=== PATIENT | male | born 1965 | race American Indian/Alaskan Native ===

== ENCOUNTER 2021-03-01 12:17 | Emergency (ER) | payer BC ==
[2021-03-01 12:59] VITALS: BP 193/67
--- NOTE | 2021-03-01 14:56 | Emergency Department Report ---
ED Extremity Problem HPI - General Chief complaint: Extremity Problem,Nontraumatic Stated complaint: SWELLING TO RT LEG Time Seen by Provider: 03/01/21 14:08 Source: patient Mode of arrival: Ambulatory Limitations: No Limitations - History of Present Illness Initial comments: 55-year-old -Martiniquais male presents to the emergency room for right leg swelling for day #2. Patient reports that his thigh and leg below was swollen. He states that he had elevated i-STAT and it seemed to have improved but then he walked on it today and the swelling increased. Patient reports he has a history of hypercholesterolemia and stable diabetes with no meds. He has a primary care provider and is followed by [facility] in [place]. States that he seen regular. He has been vaccinated and booster and has had no Covid. MD Complaint: extremity pain, extremity swelling Onset/Timin -: days(s) Location: right, lower extremity History of Same: No Severity scale (0 -10): 6 Quality: aching Consistency: intermittent Improves with: nothing Worsens with: weight bearing, walking, palpation Associated Symptoms: denies other symptoms - Related Data Previous Rx's Medication Instructions Recorded Last Taken Type Folic Acid [Folvite] 1 mg PO QDAY #30 tablet 06/11/15 Unknown Rx Pantoprazole [Protonix TAB] 20 mg PO QDAY #30 tablet. 06/11/15 Unknown Rx Thiamine [Vitamin B-1] 100 mg PO QDAY #30 tablet 06/11/15 Unknown Rx metFORMIN [Glucophage] 500 mg PO QDAY #30 tab 06/11/15 Unknown Rx oxyCODONE /ACETAMINOPHEN [Percocet 1 tab PO BID PRN #10 tablet 06/11/15 Unknown Rx 5/325] Apixaban [Eliquis starter pack] 5 mg PO BID #70 03/01/21 Unknown Rx Allergies Allergy/AdvReac Type Severity Reaction Status Date / Time No Known Allergies Allergy Verified 03/01/21 12:59 ED Review of Systems ROS: Stated complaint: SWELLING TO RT LEG Other details as noted in HPI Comment: All other systems reviewed and negative ED Past Medical Hx - Past Medical History Hx Congestive Heart Failure: No Hx Diabetes: No Hx Asthma: No Hx COPD: No Hx HIV: No - Social History Smoking Status: Never Smoker - Medications Home Medications: Home Medications Medication Instructions Recorded Confirmed Last Taken Type Folic Acid [Folvite] 1 mg PO QDAY #30 tablet 06/11/15 Unknown Rx Pantoprazole [Protonix TAB] 20 mg PO QDAY #30 tablet. 06/11/15 Unknown Rx Thiamine [Vitamin B-1] 100 mg PO QDAY #30 tablet 06/11/15 Unknown Rx metFORMIN [Glucophage] 500 mg PO QDAY #30 tab 06/11/15 Unknown Rx oxyCODONE /ACETAMINOPHEN [Percocet 1 tab PO BID PRN #10 tablet 06/11/15 Unknown Rx 5/325] Apixaban [Eliquis starter pack] 5 mg PO BID #70 03/01/21 Unknown Rx ED Physical Exam - General Limitations: No Limitations General appearance: alert, in no apparent distress - Head Head exam: Present: atraumatic, normocephalic - Eye Eye exam: Present: normal appearance - ENT ENT exam: Present: mucous membranes moist - Neck Neck exam: Present: normal inspection, full ROM - Respiratory Respiratory exam: Present: normal lung sounds bilaterally. Absent: respiratory distress, accessory muscle use - Cardiovascular Cardiovascular Exam: Present: regular rate - GI/Abdominal GI/Abdominal exam: Present: soft, normal bowel sounds - Rectal Rectal exam: Present: deferred - Expanded Lower Extremity Exam Right Hip exam: Present: full ROM, tenderness Upper Leg exam: Present: swelling Knee exam: Present: full ROM, tenderness Lower Leg exam: Present: full ROM, swelling Ankle exam: Present: normal inspection, full ROM Foot/Toe exam: Present: normal inspection, full ROM Neuro vascular tendon exam: Present: no vascular compromise Gait: Positive: observed and normal - Back Exam Back exam: Present: normal inspection - Neurological Exam Neurological exam: Present: alert, oriented X3, normal gait - Psychiatric Psychiatric exam: Present: normal affect, normal mood - Skin Skin exam: Present: warm, dry, intact, normal color. Absent: rash ED Course Vital Signs 03/01/21 12:58 Temperature 99.2 F Pulse Rate 80 Respiratory 18 Rate Blood Pressure 193/67 [Left] O2 Sat by Pulse 100 Oximetry ED Medical Decision Making - Radiology Data Radiology results: report reviewed Study Comments [facility] [address] [place] [address] Vascular Lab Report Signed Patient: REE PALOMARES MR#: [id number] : 1965 Acct:[id number] Age/Sex: 55 / M ADM Date: 03/01/21 Loc: ED Attending Dr: Ordering Physician: ANDREY NOLASCO Date of Service: 03/01/21 Procedure(s): VL venous duplex LE RT Accession Number(s): [id number] cc: ANDREY NOLASCO DUPLEX DOPPLER LOWER EXTREMITY VEINS, RIGHT INDICATION: rt leg swelling. TECHNIQUE: Duplex doppler imaging was performed through the veins of the right lower extremity using venous compression and other maneuvers. COMPARISON: No relevant prior imaging study available. FINDINGS: Right Common femoral vein: Negative. Right Superficial femoral vein: Positive. Right Popliteal vein: Positive. Right Calf veins: Positive in the peroneal veins. No thrombus in the posterior tibial vein. Additional findings: None. IMPRESSION: Positive for acute appearing DVT from the superficial femoral vein to the peroneal veins Signer Name: Robin Castro Jr, MD Signed: 03/01/2021 3:04 PM Workstation Name: [id number] Transcribed By: TTR Dictated By: ROBIN CASTRO JR, MD Electronically Authenticated By: ROBIN CASTRO JR, MD Signed Date/Time: 03/01/21 1504 DD/ 1503 TD/TT: - Medical Decision Making 55-year-old -Martiniquais male presents to the emergency room for right leg swelling for day #2. Patient reports that his thigh and leg below was swollen. He states that he had elevated i-STAT and it seemed to have improved but then he walked on it today and the swelling increased. Patient reports he has a history of hypercholesterolemia and stable diabetes with no meds. He has a primary care provider and is followed by [facility] in [place]. States that he seen regular. He has been vaccinated and booster and has had no Covid. Venous Doppler ordered for right lower extremity. Received a call from ultrasound that she had proximal superficial vein down to the peroneal of the right leg. CMP ordered for dosing of Eliquis. The patient's care has been transferred to and accepted by [facility] N[facility]. We discussed: The patient's chief complaints; labs and imaging that have been completed and those that are still pending; any treatment provided and the pa tient's response to treatment; any significant change in condition; the treatment plan prior to the transfer of care. The accepting provider will follow up on all pending labs and imaging and make any necessary changes to the current impression and/or treatment plan. The accepting physician/midlevel is now responsible for the patient's care and final disposition. Critical care attestation.: If time is entered above; I have spent that time in minutes in the direct care of this critically ill patient, excluding procedure time. ED Disposition Clinical Impression: Right leg DVT Disposition: HOME / SELF CARE / HOMELESS Is pt being admited?: No Does the pt Need Aspirin: No Condition: Stable Instructions: Bleeding Precautions When on Anticoagulant Therapy, Adult, Venous Thromboembolism Prevention, Deep Vein Thrombosis, Apixaban oral tablets Additional Instructions: Very important you take your medication as prescribed. Is more important you follow-up with the vascular provider that I am referring you to or one that is covered by your insurance. Please follow to precautions while taking medication. Return back to the emergency room if you start having chest pain shortness of breath severe headache. Return back to the emergency room if your foot becomes cold. Prescriptions: Apixaban [Eliquis starter pack] 5 mg PO BID #70 Referrals: PRIMARY CAREMD [Primary Care Provider] - 3-5 Days [facility] [Provider Group] - 3-5 Days Forms: Work/School Release Form(ED)
--- NOTE | 2021-03-01 15:08 | Vascular Lab Report ---
DUPLEX DOPPLER LOWER EXTREMITY VEINS, RIGHT INDICATION: rt leg swelling. TECHNIQUE: Duplex doppler imaging was performed through the veins of the right lower extremity using venous compression and other maneuvers. COMPARISON: No relevant prior imaging study available. FINDINGS: Right Common femoral vein: Negative. Right Superficial femoral vein: Positive. Right Popliteal vein: Positive. Right Calf veins: Positive in the peroneal veins. No thrombus in the posterior tibial vein. Additional findings: None. IMPRESSION: Positive for acute appearing DVT from the superficial femoral vein to the peroneal veins Signer Name: Robin Castro Jr, MD Signed: 03/01/2021 3:04 PM Workstation Name: [id number]
[2021-03-01 17:24] LABS: Alanine Aminotransferase 12 units/L (7-56); Blood Urea Nitrogen 10 mg/dL (9-20); Calcium 9.5 mg/dL (8.4-10.2); Hemolysis Index 6
[2021-03-01 17:25] LABS: BUN/Creatinine Ratio 17
== END 2021-03-01 17:59 | disposition home or self-care (01) ==
LOC: ED 12:17
DX: I82.401 Acute embolism and thrombosis of unspecified deep veins of right lower extremity (principal); E78.00 Pure hypercholesterolemia, unspecified
CPT/HCPCS: 36415; 80053; 99284